=== PATIENT | female | born 1965 | race Caucasian/White ===

== ENCOUNTER 2017-02-10 06:11 | Day surgery (SDC) | payer BC ==
[~2017-02-10] VITALS: Ht 165.1 cm; Wt 72.5 kg
[2017-02-10 06:15] VITALS: BP 130/70; PULSE 73; RESP 18; TEMP 98.7; O2SAT 98; Ht 165.1 cm; Wt 72.5 kg
--- OUTSIDE RECORDS SUMMARY | 2017-02-10 06:15 | XMS REPORT | Referral Summary ---
Author Author [facility], Family Medicine Organization [facility] Address Unknown Phone Unavailable Care Team Providers Care Manual Lathe Machinist Name Role Phone John Hummel Primary Care Physician [phone] Encounter Date(s): 09/03/16 - 09/03/16 [facility] [address] [place] [address] Discharge Diagnosis: Well woman exam with routine gynecological exam Discharge Disposition: 01-Home or Self Care Attending Physician: Jenna Weaver APRN Admitting Physician: Jenna Weaver APRN Vital Signs Most recent to 1 oldest [Reference Range]: Temperature Tympanic 36.0 degC [36.6-38.1 degC] *LOW* (09/03/16 11:13 AM) Peripheral Pulse 68 bpm Rate [60-100 bpm] (09/03/16 11:13 AM) Respiratory Rate 14 br/min [14-20 br/min] (09/03/16 11:13 AM) Blood Pressure 124/84 mmHg [90-140/60-90 mmHg] (09/03/16 11:13 AM) Problem List Condition Effective Dates Status Health Status Informant Anemia(Confirmed) Active Miscarriage(Confirme 2003 - 11/22/14 Resolved d)1 1D&C Allergies, Adverse Reactions, Alerts Substance Reaction Severity Status amoxicillin ORBITAL RASH Active Medications No Known Medications Results No data available for this section Immunizations Vaccine Date Refusal Reason tetanus/diphth/pertuss (Tdap) adult/adol 08/02/13 influenza virus vaccine, inactivated 10/03/14 influenza virus vaccine, live 08/02/13 Procedures Procedure Date Related Diagnosis Body Site Mammogram 08/16/13 D&C - Dilatation and curettage1 2003 1Miscarriage Social History Social History Type Response Smoking Status Never smoker Assessment and Plan Extracted from: Title: Office Visit Note-well woman Author: Jenna Weaver [employer] Date: 09/03/16 exam Assessment/Plan 1.Well woman exam with routine gynecological exam Discussed general health maintenance and disease prevention. Encouraged healthy diet and exercise more days of the week than not. Current guidelines according to the [place] [employer] recommend for average risk women a mammogram at age 45 for baseline, then every year till age 54. Beginning at age 55 every two years till life expectancy is less than 10 years. Encourage patient to schedule a mammogram. Discussed current Pap smear/pelvic exam guidelines. No further Pap smears needed. Pelvic exams as symptoms arise. Labs: Recommend fasting lipids, chemistry and thyroid function. Immunizations reviewed. Flu shot offered. Refused.. Colonoscopydue: Patient to initiate fast-trackpaperwork. Colonoscopy at age 51. DEXA scandue: Age 61. Recommend yearly wellness exams. Recommend sheuseA and D ointment on a small cut on her labiauntil it heals. No other intervention needed. Ordered: Comprehensive Metabolic Panel Lipid Panel Periodic Comp Preventive Med 40 to 64 years Est [address]66 TSH with Reflex Free T4 At the end of the visit she brought up are thickenedtoenail. If she wants she can have it removed. We discussed procedure for removaland if she would like to do that she can make an appointment at her convenience.
--- OUTSIDE RECORDS SUMMARY | 2017-02-10 06:15 | XMS REPORT | Continuity of Care Document ---
Author Author [facility] Address Unknown Phone Unavailable Care Team Providers Care Dental Professional Name Role Phone TERRI QURESHI MD Primary Care Physician [phone] Insurance Providers Guarantor Rosalie Aguilar Address [address] [phone] Email [email or web address] [employer] Policy Number [id number] Subscriber's Name Rosalie Aguilar Relationship 18 Self Group Number [id number] Effective Date 09 Chief Complaint and Reason for Visit Chief Complaint Skin Rash/Abscess/Injury Reason for Visit [id number] Problems Past Problems Medical Problem Onset Date Shingles Unknown Medications Current Home Medications Medication Dose Units Route Directions Days Qty Instructions Start Date Acyclovir 800 Mg Tablet 800 Mg Oral Five Times A Day 7 Days 35 Tablet 11/26/16 Mupirocin 1 Gm Oin.pf.jim 1 Applic Topically Three Times A Day 7 Days 1 Tube 11/26/16 Social History Social History Problem Response Recorded Date/Time Onset Date Status Hx Substance Use No 01/10/2014 9:41am Not Applicable Not Applicable Hx Alcohol Use No 01/10/2014 9:41am Not Applicable Not Applicable Has the pt used tobacco in the last 12 months No 01/10/2014 9:41am Not Applicable Not Applicable Hospital Discharge Instructions No hospital discharge instructions. Plan of Care Discharge Date 11/26/16 6:30pm Disposition 01 DISCHARGED HOME, SELF-CARE Condition at Discharge Stable Instructions/Education Provided DI for Shingles Prescriptions See Medication Section Referrals TERRI QURESHI MD Address: [address] [place] [address] [phone] Functional Status No functional status results. Allergies, Adverse Reactions, Alerts Allergen Type Severity Reaction Status Last Updated Amoxicillin Allergy Mild SWELLING TO EYES. Active 11/26/16 Immunizations Query Response on File Recorded Date/Time Hx Influenza Vaccination Y 08/201301/10/14 9:41am Hx Pneumococcal Vaccination No 01/10/14 9:41am Hx Influenza Vaccination Y 08/201301/10/14 9:41am Vital Signs Acute Vital Signs Vital Response Date/Time Temperature (Fahrenheit) 98.2 deg F (96.8 - 99.1) 11/26/2016 5:50pm Temperature (Calculated Celsius) 36.66903 degrees C (36.0 - 37.3) 11/26/2016 5:50pm Pulse Rate (adult) 66 bpm (60 - 100) 11/26/2016 5:50pm O2 Sat by Pulse Oximetry 100 % (90 - 100) 11/26/2016 5:50pm Blood Pressure 127/67 mm Hg 11/26/2016 5:50pm Height (Feet) 5 feet 11/26/2016 5:50pm Height (Inches) 6.00 inches 11/26/2016 5:50pm Weight (Kilograms) 76.100 kg 11/26/2016 5:50pm Body Mass Index (BMI) 27.0 11/26/2016 5:50pm Results No known relevant diagnostic tests, laboratory data and/or discharge summary. Procedures No known history of procedures. Encounters Encounter Location Arrival/Admit Date Discharge/Depart Date Attending Provider Departed Emergency Room [facility] 11/26/16 5:35pm 11/26/16 6: 30pm JOCELIN BULLARD APRN Recent Diagnosis
[2017-02-10] MEDS ORDERED: LR 1,000 ML IV SCH (07:00)
[2017-02-10] MEDS ORDERED: LIDOCAINE 1% (10mg/ml) 2ml SDV INJ ONE (07:00)
--- NOTE | 2017-02-10 07:31 | ANESPREOP ---
Anesthesia Record Date and Time DATE: 02/10/17 TIME: 07:29 Pre-Op Diagnosis crcs Proposed Surgical Procedure COLONOSCOPY Allergies: Coded Allergies: amoxicillin (Verified Allergy, Mild, SWELLING TO EYES., 02/10/17) Ht/Wt/BMI Height: 5 ' 5.00 " Weight: 72.500 kg BMI: 26.6 kg/m2 Vital Signs Date Time Temp Pulse Resp B/P Pulse Ox O2 Delivery O2 Flow Rate FiO2 02/10/17 06:15 98.7 73 18 130/70 98 Room Air Medications Inpatient Medications Current Medications Medications (Trade) Dose Ordered Sig/Paulette Start Time Stop Time Status Last Admin Dose Admin Lactated Ringer's (Lactated Ringers) 1,000 ml @ 30 mls/hr Q24H 02/10/17 07:00 02/10/17 06:48 30 MLS/HR No Active Prescriptions or Reported Meds Currently on Beta Ragini: No Medical/Surgical History Anesthesia PMH: Denies: *Angina, *Diabetes, *Dyspnea, *Hypertension, *HI, Anesthesia Reactions (NO AIRWAY ISSUES), Arthritis, Asthma, Blood Transfusion Reac, CHF, COPD, CVA/Stroke/TIA, Cancer, Clotting Problems, Deep Vein Thrombosis , Glaucoma, Hepatitis, Hiatal Hernia, Malignant Hyperthermia, Pneumonia, Reflux , Renal Disease, Seizures, Sleep Apnea, Thyroid Disease, Tuberculosis Smoking Status: Never smoker Has pt. smoked today?: No Use Chewing Tobacco?: No Second Hand Exposure: No Substance Use Type: does not use Substance last used: unknown Alcohol Intake: none Last Drink: unknown HX of Last Menstrual Period: HYST Past Surgical History Orthopedic Surgeries: No Abdominal Surgeries: No Genitourinary Surgeries: No Cardiac Surgeries: No Endocrine Surgeries: No Reproductive Surgeries: Yes - HYSTERECTOMY, D&C Neurological Surgeries: No Ear Surgeries: No Nose Surgeries: No Throat Surgeries: No Other Surgeries: No Anesthesia Adverse Reactions: FOUND none Family Hx of Anesthesia Advers: none Hx of Motion Sickness: Yes Pertinent Findings EKG Rhythm: Sinus Rhythm Physical Exam Respiratory: Bilat breath sounds equal, Lungs clear Cardiovascular: FOUND Regular rate, rhythm, FOUND No murmur Airway Assessment Mallampati Score: II TMD: 3 Fingerbreadths Neck Extension: Good Overall Assessment: No Airway Concerns ASA: 1 Plan Anesthesia Plan: TIVA Discussion Discussed risks/options/alternatives of anesthesia and questions answered. Patient consents. Nursing pain assessment noted. Present: Spouse Attestation Statement Prior to the delivery of any anesthetic medication, I examined the patient, developed the plan, obtained the patient's consent and discussed the risk and benefits of the procedure with the patient/guardian. LAN CARDOZA CRNA Feb 10, 2017 07:31
[2017-02-10] MEDS ORDERED: PROPOFOL 500mg 50 ML IV ONE (08:19)
[2017-02-10] MEDS ORDERED: LIDOCAINE 1% (10mg/ml) 2ml SDV ONE (08:19)
[2017-02-10 09:02] VITALS: BP 113/56; PULSE 69; RESP 12; TEMP 97.3; O2SAT 98
[2017-02-10 09:12] VITALS: BP 115/64; PULSE 70; RESP 16; O2SAT 99
--- NOTE | 2017-02-10 09:20 | ANESPO ---
Post-Op Note Date 02/10/17 Time: 09:20 Status Pt Participated in Evaluation: Pt participated in person Vital Signs Date Time Temp Pulse Resp B/P Pulse Ox O2 Delivery O2 Flow Rate FiO2 02/10/17 09:12 70 16 115/64 99 Room Air 02/10/17 09:02 97.3 Respiratory Function: Airway patent, Regular respirations Cardiovascular Function: Regular pulse Mental Status: Alert/oriented Pain Level Intensity: 0 Unable to Assess Pain Due To: Medicated/Sleeping Hydration: Taking po fluids Complications during Recovery None apparent Follow-Up Instructions Instructions Per Surgeon LEROY GOLDEN CRNA Feb 10, 2017 09:20
[2017-02-10 09:22] VITALS: BP 107/61; PULSE 60; RESP 17; O2SAT 100
[2017-02-10 09:30] VITALS: BP 111/64; PULSE 61; RESP 16; O2SAT 100
--- NOTE | 2017-02-10 11:42 | OPNOTEF ---
DATE OF SERVICE 02/10/2017 SURGEON Domingo Miranda MD PREOPERATIVE DIAGNOSIS Colorectal cancer surveillance. POSTOPERATIVE DIAGNOSIS Colorectal cancer surveillance, normal colonoscopy. PROCEDURE Colonoscopy ANESTHESIA TIVA BRIEF HISTORY/INDICATIONS Mrs. Aguilar is a 51-year-old female who presents today to [facility] to undergo a colonoscopy to serve as a portion of her overall colorectal cancer surveillance. For completeness please refer to notes included in the patient's chart. FINDINGS Upon colonoscopy, there was no evidence for angiodysplastic lesions, polyps, diverticula or edwar malignancies. DESCRIPTION OF PROCEDURE After informed consent was obtained, the patient was brought to the endoscopy suite and placed on the table in left lateral decubitus position. The patient subsequently underwent total intravenous anesthesia by the nurse child care centre manager per my request. A formal timeout was then performed. Next, a digital rectal examination was performed. Normal sphincter tone. No rectal masses were appreciated. An Olympus colonoscope was inserted in the anus and advanced with the lumen of the colon under direct visualization at all times until the cecum was ascertained. Triangulation of the tenia coli, ileocecal valve and appendiceal lumen were all visualized. The scope was then slowly withdrawn, again while maintaining visualization of the lumen at all times. As stated above, the entire colon was without evidence for angiodysplastic lesions, polyps, diverticula or edwar malignancies. The scope continued to be withdrawn until it was brought forth back into the rectal vault. A J-maneuver was then performed. No worrisome perianal pathology was noted. The scope was allowed to straighten and was withdrawn through the anal verge. The patient tolerated the procedure without difficulty and was sent back to the preop area in stable condition. Secondary to the absence of findings upon this colonoscopy, the patient will not need to undergo a repeat colonoscopy until ten years from now unless new indications should arise. JAKE
== END 2017-02-10 09:35 | disposition home or self-care (01) ==
LOC: NSC 06:11
PROVIDERS: ATTEND Surgery
DX: Z12.11 Encounter for screening for malignant neoplasm of colon (principal)
CPT/HCPCS: 45378; J2704; J7120